=== PATIENT | male | born 1985 | race Hispanic/Latino ===

== ENCOUNTER 2019-01-26 20:57 | Emergency (ER) | payer BC ==
[~2019-01-26] VITALS: Ht 180.3 cm; Wt 110.2 kg
[2019-01-26] MEDS ORDERED: SODIUM CHLORIDE 0.9% 1000ML 1,000 ML IV SCH (21:15)
[2019-01-26] MEDS ORDERED: ONDANSETRON HCL INJ 2MG/ML 2ML 2 MG/ML VIAL IV STA (21:15)
[2019-01-26] MEDS ORDERED: KETOROLAC TROMETHAMINE 30 MG/ML VIAL IV ONE (21:15)
[2019-01-26 23:18] VITALS: BP 133/75
== END 2019-01-26 23:20 | disposition home or self-care (01) ==
LOC: FSED 20:57
DX: R50.9 Fever, unspecified (principal); R11.2 Nausea with vomiting, unspecified; R19.7 Diarrhea, unspecified; K52.9 Noninfective gastroenteritis and colitis, unspecified; E86.0 Dehydration
CPT/HCPCS: 80053; 81003; 85025; 99283; J1885; J2405